=== PATIENT | male | born 1995 | race Asian ===

== ENCOUNTER 2025-03-27 10:49 | Emergency (ER) | payer OTHER, SELFPAY ==
[2025-03-27 10:54] VITALS: BP 165/91; PULSE 99; RESP 14; TEMP 36.5; O2SAT 98; BMI 24.0
[2025-03-27] MEDS: ACETAMINOPHEN 325 MG TABLET 650 MG PO (11:00)
[2025-03-27 14:24] VITALS: BP 144/84; PULSE 76; O2SAT 100
--- NOTE | 2025-03-27 14:43 | ED_ITS ---
<Statement entered by Curry Kathleen MD - 04/18/25 07:33> I was personally available for consultation in the Department appetite and the patient was seen HPI - General Adult General Chief complaint: Hypertension Stated complaint: sent from PCP for high blood pressure Time Seen by Provider: 03/27/25 14:30 Mode of arrival: Ambulatory History of Present Illness HPI narrative: 29-year-old male with no reported past medical history presents to the ED with a complaint of a headache and elevated blood pressure reading. Patient was seen at the [facility] for a headache, had an elevated SBP of 150, was sent to the ED for further evaluation. Patient states that he started with a headache last night which was about 6/10. This morning he awoke and felt somewhat lightheaded and continued to have the headache. The lightheadedness resolved after he ate some food. The headache improved to 4/10. In the ED, patient's presenting blood pressure was 165/91, subsequent blood pressure after Tylenol came down to 144/84. No chest pain, shortness of breath, fever, chills, nausea, vomiting, abdominal pain, dizziness, syncope. Related Data Allergies Allergy/AdvReac Type Severity Reaction Status Date / Time No Known Drug Allergies Allergy Verified 03/27/25 10:54 Review of Systems Constitutional Constitutional: Denies chills, Denies fatigue, Denies fever(s), Denies frequent falls, Reports headache(s), Denies lethargy and Denies weakness Eyes Eyes: Denies change in vision, Denies eye discharge, Denies irritation and Denies loss of vision ENT Ears, Nose, Mouth, and Throat: Denies change in voice, Denies dizziness, Reports headache(s), Denies neck pain, Denies sore throat and Denies throat swelling Cardiovascular Cardiovascular: Denies chest pain, Denies irregular heart rhythm, Reports lightheadedness, Denies palpitations, Denies dyspnea, Denies dyspnea on exertion and Denies orthopnea Respiratory Respiratory: Denies cough, Denies dyspnea, Denies dyspnea on exertion and Denies wheezing Gastrointestinal Gastrointestinal: Denies abdominal pain, Denies change in bowel habits, Denies diarrhea, Denies nausea and Denies vomiting Musculoskeletal Musculoskeletal: Denies neck pain and Denies numbness Integumentary/Breasts Skin/Breast: Denies pruritus, Denies erythema, Denies rash and Denies wounds Neurologic Neurologic: Denies behavioral changes, Denies confusion, Denies dizziness, Denies frequent falls, Reports headache(s), Denies loss of vision, Denies numbness and Denies weakness Psychiatric Psychiatric: Denies anxiety, Denies behavioral changes, Denies confusion, Denies depression, Denies homicidal ideation and Denies suicidal ideation Endocrine Endocrine: Denies fatigue, Denies flushing and Denies palpitations Hematologic/Lymphatic Hematologic/Lymphatic: Denies easy bruising Allergic/Immunologic Allergic/Immunologic: Denies urticaria, Denies throat swelling and Denies whe ezing Patient History Social History Smoking Status: Former smoker Smoking Status: Former smoker Exam Narrative Exam Narrative: Const General:?cooperative, healthy appearing and comfortable HENMT Head:?normal to inspection Ears:?hearing grossly normal bilaterally Nose:?external nose normal Face and sinus:?normal facial exam and sinuses nontender Mouth:?oral mucosae normal Throat:?posterior oropharynx normal Eyes General:?appearance normal, both eyes and all related structures Neck Neck:?normal visual inspection and no lymphadenopathy noted Resp Effort & Inspection:?normal respiratory effort Auscultation:?clear to auscultation bilaterally Cardio Rate:?regular rate Rhythm:?regular rhythm Neuro General:?patient alert, patient awake and patient oriented x3; PERRLA; CN 2-12 intact bilaterally; gait normal Initial Vital Signs Initial Vital Signs: Vital Signs Temperature 97.7 F 03/27/25 10:54 Pulse Rate 99 H 03/27/25 10:54 Respiratory Rate 14 03/27/25 10:54 Blood Pressure 165/91 H 03/27/25 10:54 Pulse Oximetry 98 03/27/25 10:54 Oxygen Delivery Method Room Air 03/27/25 10:54 Course Orders Ordered: Discontinued Medications Acetaminophen (Acetaminophen 325 Mg Tablet) 650 mg PO NOW ONE Stop: 03/27/25 10:58 Last Admin: 03/27/25 11:00 Dose: 650 mg Documented By: EMERALD Ibuprofen (Ibuprofen 400 Mg Tablet) 800 mg PO NOW ONE Stop: 03/27/25 15:17 Last Admin: 03/27/25 15:52 Dose: 800 mg Documented By: SARA Vital Signs Vital signs: Vital Signs - 8 hr 03/27/25 10:54 03/27/25 14:24 08/05/25 16:26 Temperature 97.7 F Pulse Rate 99 H 76 65 Respiratory Rate 14 16 Blood Pressure 165/91 H 144/84 H 147/71 H Pulse Oximetry 98 100 98 Oxygen Delivery Method Room Air Room Air Medical Decision Making MDM Narrative Medical decision making narrative: 29-year-old male with no reported past medical history presents to the ED with a complaint of a headache and elevated blood pressure reading. Patient's symptoms are most consistent with a primary headache that is causing an elevated blood pressure. No red flag symptoms. It is reassuring to note that the blood pressure has gone down to 144/84 with Tylenol. Will give patient ibuprofen, re- evaluate. Patient's headache improved with the Tylenol and ibuprofen. Counseled patient on supportive measures to control the headache with Tylenol, ibuprofen and plenty of water. Recommend home blood pressure log and follow-up with PCP if blood pressure remains elevated. ED return precautions were discussed with patient. Patient verbalized understanding. Medical records reviewed: Yes Discharge Plan Departure Patient Disposition: Home Clinical Impression: Headache Qualifiers: Headache type: unspecified Headache chronicity pattern: acute headache Intracta bility: not intractable Qualified Code(s): R51.9 - Headache, unspecified Instructions: DI for Headache Activity Restrictions/Additional Instructions: You were evaluated in the emergency department today for a headache and elevated blood pressure reading. It appears that you have been suffering a headache for the last day which is elevating your blood pressure. Your blood pressure should fall back to your normal baseline once your headache is resolved. You were given Tylenol and ibuprofen in the emergency department today with good relief. Please continue taking Tylenol, ibuprofen at home, please also consume plenty of water. You may continue to take blood pressure readings at home with a home blood pressure cuff at the same time every day and noted down to make a log. If you note elevated blood pressure readings above 120/80, please take the log with you to your PCP's office for further evaluation and treatment. Return to the ED if you have worsening symptoms, chest pain, shortness of breath. Referrals: [facility] [Primary Care Provider, Family Practice] Stand Alone Forms: Patient Portal/API
[2025-03-27] MEDS: IBUPROFEN 400 MG TABLET 800 MG PO (15:52)
[2025-03-27 16:26] VITALS: BP 147/71; PULSE 65; RESP 16; O2SAT 98
== END 2025-03-27 16:48 | disposition home or self-care (01) ==
PROVIDERS: Emergency Provider Student in an Organized Health Care Education/Training Program
DX: R51.9 Headache, unspecified (principal)
CPT/HCPCS: 99283